=== PATIENT | female | born 1955 | race Caucasian/White ===

== ENCOUNTER 2020-12-26 10:37 | Outpatient (REF) | payer OTHER, SELFPAY ==
--- NOTE | ~2020-12-26 | XR_ITS ---
EXAMINATION: XR CHEST CLINICAL INFORMATION: COPD. COMPARISON: None TECHNIQUE: 2 views of the chest were obtained. FINDINGS: No significant abnormality is noted involving the heart, lungs, mediastinum, bony thorax or soft tissues. XR/XR chest 2V IMPRESSION: Unremarkable chest examination.
[2020-12-26 12:48] LABS: MANUAL DIFF FLAG NO
[2020-12-26 13:15] LABS: Basophils Absolute Auto 0.1 X10*3/uL (0.0-0.2); Basophils Percent Auto 1.1 % (0-2); Eosinophils Absolute Auto 0.1 X10*3/uL (0.0-0.4); Eosinophils Percent Auto 1.1 % (0-4); Hematocrit 38.6 % (37-47); Hemoglobin 12.9 g/dl (12.0-16.0); Imm Gran Abs Auto 0.01 X10*3/uL (0.00-0.03); Imm Gran Pct Auto 0.2 % (0.0-0.4); Lymphocytes Absolute Auto 2.3 X10*3/uL (1.2-4.9); Lymphocytes Percent Auto 42.9 % (20-40); Mean Corpuscular HGB Conc 33.4 g/dl (31.0-35.0); Mean Corpuscular Hemoglobin 29.5 pg (27.0-33.0); Mean Corpuscular Volume 88.1 fL (80-98); Mean Platelet Volume 9.4 fL (9.4-12.3); Monocytes Absolute Auto 0.3 X10*3/uL (0.1-1.2); Monocytes Percent Auto 5.5 % (2-11); Neutrophils Absolute Auto 2.7 X10*3/uL (2.0-8.3); Neutrophils Percent Auto 49.2 % (45-73); Platelet Count 260 X10*3/uL (160-400); Red Blood Count 4.38 X10*6/uL (4.20-5.50); Red Cell Distribution Width 12.4 % (11.0-16.0); White Blood Count 5.5 X10*3/uL (4.8-10.8)
[2020-12-26 14:55] LABS: Erythrocyte Sedimentation Rate 31 MM/HR (0-20)
[2020-12-27 15:02] LABS: IgA 487 mg/dL (70-320); IgG 993 mg/dL (600-1540); IgM 63 mg/dL (50-300)
== END 2020-12-26 10:38 | disposition home or self-care (01) ==
LOC: HO.LAB 10:37
PROVIDERS: PCP Nurse Practitioner Adult Health; Visit Provider Hospitalist
DX: J44.9 Chronic obstructive pulmonary disease, unspecified (principal); J30.9 Allergic rhinitis, unspecified; G47.33 Obstructive sleep apnea (adult) (pediatric); R01.1 Cardiac murmur, unspecified; Z79.899 Other long term (current) drug therapy
CPT/HCPCS: 36415; 71046; 82784; 82785; 85025; 85652; 86003; 99202

== ENCOUNTER → 2021-02-09 08:41 | Outpatient (BNVA) | payer OTHER, SELFPAY | PROVIDERS: PCP Nurse Practitioner Adult Health; Visit Provider Hospitalist | DX: G47.33 Obstructive sleep apnea (adult) (pediatric) (principal); J30.9 Allergic rhinitis, unspecified; J44.9 Chronic obstructive pulmonary disease, unspecified | CPT/HCPCS: 99212 ==

== ENCOUNTER → 2021-03-23 08:46 | Outpatient (BNVA) | payer OTHER, SELFPAY | PROVIDERS: PCP Nurse Practitioner Adult Health; Visit Provider Hospitalist | DX: R01.1 Cardiac murmur, unspecified (principal); J44.9 Chronic obstructive pulmonary disease, unspecified; G47.33 Obstructive sleep apnea (adult) (pediatric); J30.9 Allergic rhinitis, unspecified | CPT/HCPCS: 99212 ==

== ENCOUNTER 2021-04-11 10:35 | Outpatient (REF) | payer OTHER, SELFPAY | END 2021-04-11 10:36 | disposition home or self-care (01) | LOC: HO.MDS 10:35 | PROVIDERS: PCP Nurse Practitioner Adult Health; Visit Provider Hospitalist | DX: J45.50 Severe persistent asthma, uncomplicated (principal) | CPT/HCPCS: 96372; J2357 ==

== ENCOUNTER 2021-04-25 07:19 | Outpatient (REF) | payer OTHER, SELFPAY | END 2021-04-25 07:20 | disposition home or self-care (01) | LOC: HO.MDS 07:19 | PROVIDERS: PCP Nurse Practitioner Adult Health; Visit Provider Hospitalist | DX: J45.50 Severe persistent asthma, uncomplicated (principal) | CPT/HCPCS: 96372; J2357 ==

== ENCOUNTER 2021-05-09 07:16 | Outpatient (REF) | payer OTHER, SELFPAY | END 2021-05-09 07:17 | disposition home or self-care (01) | LOC: HO.MDS 07:16 | PROVIDERS: PCP Nurse Practitioner Adult Health; Visit Provider Hospitalist | DX: J45.50 Severe persistent asthma, uncomplicated (principal) | CPT/HCPCS: 96372; J2357 ==

== ENCOUNTER 2021-05-23 07:33 | Outpatient (REF) | payer OTHER, SELFPAY | END 2021-05-23 07:34 | disposition home or self-care (01) | LOC: HO.MDS 07:33 | PROVIDERS: PCP Nurse Practitioner Adult Health; Visit Provider Hospitalist | DX: J45.50 Severe persistent asthma, uncomplicated (principal) | CPT/HCPCS: 96372; J2357 ==

== ENCOUNTER 2021-06-06 07:12 | Outpatient (REF) | payer OTHER, SELFPAY | END 2021-06-06 07:13 | disposition home or self-care (01) | LOC: HO.MDS 07:12 | PROVIDERS: PCP Nurse Practitioner Adult Health; Visit Provider Hospitalist | DX: J45.50 Severe persistent asthma, uncomplicated (principal) | CPT/HCPCS: 96372; J2357 ==

== ENCOUNTER 2021-06-20 07:13 | Outpatient (REF) | payer OTHER, SELFPAY | END 2021-06-20 07:14 | disposition home or self-care (01) | LOC: HO.MDS 07:13 | PROVIDERS: PCP Nurse Practitioner Adult Health; Visit Provider Hospitalist | DX: J45.50 Severe persistent asthma, uncomplicated (principal) | CPT/HCPCS: 96372; J2357 ==

== ENCOUNTER 2021-07-04 07:20 | Outpatient (REF) | payer OTHER, SELFPAY | END 2021-07-04 07:21 | disposition home or self-care (01) | LOC: HO.MDS 07:20 | PROVIDERS: PCP Nurse Practitioner Adult Health; Visit Provider Hospitalist | DX: J45.50 Severe persistent asthma, uncomplicated (principal) | CPT/HCPCS: 96372; J2357 ==

== ENCOUNTER 2021-07-18 07:22 | Outpatient (REF) | payer OTHER, SELFPAY | END 2021-07-18 07:23 | disposition home or self-care (01) | LOC: HO.MDS 07:22 | PROVIDERS: PCP Nurse Practitioner Adult Health; Visit Provider Hospitalist | DX: J45.50 Severe persistent asthma, uncomplicated (principal) | CPT/HCPCS: 96372; J2357 ==

== ENCOUNTER → 2021-07-25 08:16 | Outpatient (BNVA) | payer OTHER, SELFPAY | PROVIDERS: PCP Nurse Practitioner Adult Health; Visit Provider Hospitalist | DX: J45.40 Moderate persistent asthma, uncomplicated (principal); J30.9 Allergic rhinitis, unspecified; R01.1 Cardiac murmur, unspecified; G47.33 Obstructive sleep apnea (adult) (pediatric) | CPT/HCPCS: 90686; 99212 ==

== ENCOUNTER 2021-08-01 07:30 | Outpatient (REF) | payer OTHER, SELFPAY | END 2021-08-01 07:31 | disposition home or self-care (01) | LOC: HO.MDS 07:30 | PROVIDERS: PCP Nurse Practitioner Adult Health; Visit Provider Hospitalist | DX: J45.50 Severe persistent asthma, uncomplicated (principal) | CPT/HCPCS: 96372; J2357 ==

== ENCOUNTER → 2021-08-14 10:57 | Outpatient (REF) | payer OTHER, SELFPAY | LOC: HO.SL 10:57 | PROVIDERS: PCP Nurse Practitioner Adult Health; Visit Provider Hospitalist | DX: G47.33 Obstructive sleep apnea (adult) (pediatric) (principal) | CPT/HCPCS: 95806 ==

== ENCOUNTER 2021-08-15 07:13 | Outpatient (REF) | payer OTHER, SELFPAY | END 2021-08-15 07:14 | disposition home or self-care (01) | LOC: HO.MDS 07:13 | PROVIDERS: PCP Nurse Practitioner Adult Health; Visit Provider Hospitalist | DX: J45.50 Severe persistent asthma, uncomplicated (principal) | CPT/HCPCS: 96372; J2357 ==

== ENCOUNTER 2021-08-29 07:17 | Outpatient (REF) | payer OTHER, SELFPAY | END 2021-08-29 07:18 | disposition home or self-care (01) | LOC: HO.MDS 07:17 | PROVIDERS: PCP Nurse Practitioner Adult Health; Visit Provider Hospitalist | DX: J45.50 Severe persistent asthma, uncomplicated (principal) | CPT/HCPCS: 96372; J2357 ==

== ENCOUNTER → 2021-09-06 10:20 | Outpatient (BNVA) | payer OTHER, SELFPAY | PROVIDERS: PCP Nurse Practitioner Adult Health; Visit Provider Hospitalist | DX: J45.40 Moderate persistent asthma, uncomplicated (principal); J30.9 Allergic rhinitis, unspecified; G47.33 Obstructive sleep apnea (adult) (pediatric); R01.1 Cardiac murmur, unspecified | CPT/HCPCS: 99212 ==

== ENCOUNTER 2021-09-12 07:15 | Outpatient (REF) | payer OTHER, SELFPAY | END 2021-09-12 07:16 | disposition home or self-care (01) | LOC: HO.MDS 07:15 | PROVIDERS: PCP Nurse Practitioner Adult Health; Visit Provider Hospitalist | DX: J45.50 Severe persistent asthma, uncomplicated (principal) | CPT/HCPCS: 96372; J2357 ==

== ENCOUNTER 2021-09-26 07:06 | Outpatient (REF) | payer OTHER, SELFPAY | END 2021-09-26 07:07 | disposition home or self-care (01) | LOC: HO.MDS 07:06 | PROVIDERS: PCP Nurse Practitioner Adult Health; Visit Provider Hospitalist | DX: J45.50 Severe persistent asthma, uncomplicated (principal) | CPT/HCPCS: 96372; J2357 ==

== ENCOUNTER 2021-10-10 07:21 | Outpatient (REF) | payer OTHER, SELFPAY | END 2021-10-10 07:22 | disposition home or self-care (01) | LOC: HO.MDS 07:21 | PROVIDERS: PCP Nurse Practitioner Adult Health; Visit Provider Hospitalist | DX: J45.50 Severe persistent asthma, uncomplicated (principal) | CPT/HCPCS: 96372; J2357 ==

== ENCOUNTER 2021-10-24 07:13 | Outpatient (REF) | payer OTHER, SELFPAY | END 2021-10-24 07:14 | disposition home or self-care (01) | LOC: HO.MDS 07:13 | PROVIDERS: PCP Nurse Practitioner Adult Health; Visit Provider Hospitalist | DX: J45.50 Severe persistent asthma, uncomplicated (principal) | CPT/HCPCS: 96372; J2357 ==

== ENCOUNTER → 2021-10-26 08:31 | Outpatient (BNVA) | payer OTHER, SELFPAY | PROVIDERS: PCP Nurse Practitioner Adult Health; Visit Provider Hospitalist | DX: J45.40 Moderate persistent asthma, uncomplicated (principal); R01.1 Cardiac murmur, unspecified; J30.9 Allergic rhinitis, unspecified; G47.33 Obstructive sleep apnea (adult) (pediatric); Z79.899 Other long term (current) drug therapy | CPT/HCPCS: 99212 ==

== ENCOUNTER 2021-11-07 07:12 | Outpatient (REF) | payer OTHER, SELFPAY | END 2021-11-07 07:13 | disposition home or self-care (01) | LOC: HO.MDS 07:12 | PROVIDERS: PCP Nurse Practitioner Adult Health; Visit Provider Hospitalist | DX: J45.50 Severe persistent asthma, uncomplicated (principal) | CPT/HCPCS: 96372; J2357 ==

== ENCOUNTER 2021-11-21 07:10 | Outpatient (REF) | payer OTHER, SELFPAY | END 2021-11-21 07:11 | disposition home or self-care (01) | LOC: HO.MDS 07:10 | PROVIDERS: PCP Nurse Practitioner Adult Health; Visit Provider Hospitalist | DX: J45.50 Severe persistent asthma, uncomplicated (principal) | CPT/HCPCS: 96372; J2357 ==

== ENCOUNTER 2021-12-07 12:42 | Outpatient (REF) | payer OTHER, SELFPAY | END 2021-12-07 12:43 | disposition home or self-care (01) | LOC: HO.MDS 12:42 | PROVIDERS: PCP Nurse Practitioner Adult Health; Visit Provider Hospitalist | DX: J45.50 Severe persistent asthma, uncomplicated (principal) | CPT/HCPCS: 96372; J2357 ==

== ENCOUNTER 2021-12-26 07:08 | Outpatient (REF) | payer OTHER, SELFPAY | END 2021-12-26 07:09 | disposition home or self-care (01) | LOC: HO.MDS 07:08 | PROVIDERS: PCP Nurse Practitioner Adult Health; Visit Provider Hospitalist | DX: J45.50 Severe persistent asthma, uncomplicated (principal) | CPT/HCPCS: 96372; J2357 ==

== ENCOUNTER 2022-01-09 07:11 | Outpatient (REF) | payer OTHER, SELFPAY | END 2022-01-09 07:12 | disposition home or self-care (01) | LOC: HO.MDS 07:11 | PROVIDERS: PCP Nurse Practitioner Adult Health; Visit Provider Hospitalist | DX: J45.50 Severe persistent asthma, uncomplicated (principal) | CPT/HCPCS: 96372; J2357 ==

== ENCOUNTER 2022-01-23 07:08 | Outpatient (REF) | payer OTHER, SELFPAY | END 2022-01-23 07:09 | disposition home or self-care (01) | LOC: HO.MDS 07:08 | PROVIDERS: PCP Nurse Practitioner Adult Health; Visit Provider Hospitalist | DX: J45.50 Severe persistent asthma, uncomplicated (principal) | CPT/HCPCS: 96372; J2357 ==

== ENCOUNTER 2022-02-06 07:16 | Outpatient (REF) | payer OTHER, SELFPAY | END 2022-02-06 07:17 | disposition home or self-care (01) | LOC: HO.MDS 07:16 | PROVIDERS: PCP Nurse Practitioner Adult Health; Visit Provider Hospitalist | DX: J45.50 Severe persistent asthma, uncomplicated (principal) | CPT/HCPCS: 96372; J2357 ==

== ENCOUNTER 2022-02-20 07:06 | Outpatient (REF) | payer OTHER, SELFPAY | END 2022-02-20 07:07 | disposition home or self-care (01) | LOC: HO.MDS 07:06 | PROVIDERS: PCP Nurse Practitioner Adult Health; Visit Provider Hospitalist | DX: J45.50 Severe persistent asthma, uncomplicated (principal) | CPT/HCPCS: 96372; J2357 ==

== ENCOUNTER 2022-03-06 07:08 | Outpatient (REF) | payer OTHER, SELFPAY | END 2022-03-06 07:09 | disposition home or self-care (01) | LOC: HO.MDS 07:08 | PROVIDERS: PCP Nurse Practitioner Adult Health; Visit Provider Hospitalist | DX: J45.50 Severe persistent asthma, uncomplicated (principal) | CPT/HCPCS: 96372; J2357 ==

== ENCOUNTER 2022-03-20 07:09 | Outpatient (REF) | payer OTHER, SELFPAY | END 2022-03-20 07:10 | disposition home or self-care (01) | LOC: HO.MDS 07:09 | PROVIDERS: PCP Nurse Practitioner Adult Health; Visit Provider Hospitalist | DX: J45.50 Severe persistent asthma, uncomplicated (principal) | CPT/HCPCS: 96372; J2357 ==

== ENCOUNTER → 2022-03-21 08:40 | Outpatient (BNVA) | payer OTHER, SELFPAY | PROVIDERS: PCP Nurse Practitioner Adult Health; Visit Provider Hospitalist | DX: J45.40 Moderate persistent asthma, uncomplicated (principal); G47.33 Obstructive sleep apnea (adult) (pediatric); R01.1 Cardiac murmur, unspecified; J30.9 Allergic rhinitis, unspecified | CPT/HCPCS: 99212 ==

== ENCOUNTER 2022-04-03 07:05 | Outpatient (REF) | payer OTHER, SELFPAY | END 2022-04-03 07:06 | disposition home or self-care (01) | LOC: HO.MDS 07:05 | PROVIDERS: PCP Nurse Practitioner Adult Health; Visit Provider Hospitalist | DX: J45.50 Severe persistent asthma, uncomplicated (principal) | CPT/HCPCS: 96372; J2357 ==

== ENCOUNTER 2022-04-17 07:05 | Outpatient (REF) | payer OTHER, SELFPAY | END 2022-04-17 07:06 | disposition home or self-care (01) | LOC: HO.MDS 07:05 | PROVIDERS: Visit Provider Hospitalist | DX: J45.50 Severe persistent asthma, uncomplicated (principal) | CPT/HCPCS: 96372; J2357 ==

== ENCOUNTER 2022-05-01 07:09 | Outpatient (REF) | payer OTHER, SELFPAY | END 2022-05-01 07:10 | disposition home or self-care (01) | LOC: HO.MDS 07:09 | PROVIDERS: Visit Provider Hospitalist | DX: J45.50 Severe persistent asthma, uncomplicated (principal) | CPT/HCPCS: 96372; J2357 ==

== ENCOUNTER 2022-06-13 07:07 | Outpatient (REF) | payer OTHER, SELFPAY | END 2022-06-13 07:08 | disposition home or self-care (01) | LOC: HO.MDS 07:07 | PROVIDERS: Visit Provider Hospitalist | DX: J45.50 Severe persistent asthma, uncomplicated (principal) | CPT/HCPCS: 96372; J2357 ==

== ENCOUNTER 2022-06-27 07:06 | Outpatient (REF) | payer OTHER, SELFPAY | END 2022-06-27 07:07 | disposition home or self-care (01) | LOC: HO.MDS 07:06 | PROVIDERS: Visit Provider Hospitalist | DX: J45.50 Severe persistent asthma, uncomplicated (principal) | CPT/HCPCS: 96372; J2357 ==

== ENCOUNTER 2022-07-11 07:36 | Outpatient (REF) | payer OTHER, SELFPAY | END 2022-07-11 07:37 | disposition home or self-care (01) | LOC: HO.MDS 07:36 | PROVIDERS: Visit Provider Hospitalist | DX: J45.50 Severe persistent asthma, uncomplicated (principal) | CPT/HCPCS: 96372; J2357 ==

== ENCOUNTER 2022-07-25 07:13 | Outpatient (REF) | payer OTHER, SELFPAY | END 2022-07-25 07:14 | disposition home or self-care (01) | LOC: HO.MDS 07:13 | PROVIDERS: Visit Provider Hospitalist | DX: J45.50 Severe persistent asthma, uncomplicated (principal) | CPT/HCPCS: 96372; J2357 ==

== ENCOUNTER 2022-08-08 07:07 | Outpatient (REF) | payer OTHER, SELFPAY | END 2022-08-08 07:08 | disposition home or self-care (01) | LOC: HO.MDS 07:07 | PROVIDERS: Visit Provider Hospitalist | DX: J45.50 Severe persistent asthma, uncomplicated (principal) | CPT/HCPCS: 96372; J2357 ==

== ENCOUNTER 2022-08-20 07:06 | Outpatient (REF) | payer OTHER, SELFPAY | END 2022-08-20 07:07 | disposition home or self-care (01) | LOC: HO.MDS 07:06 | PROVIDERS: Visit Provider Hospitalist | DX: J45.50 Severe persistent asthma, uncomplicated (principal) | CPT/HCPCS: 96372 ==

== ENCOUNTER 2022-09-05 07:04 | Outpatient (REF) | payer OTHER, SELFPAY | END 2022-09-05 07:05 | disposition home or self-care (01) | LOC: HO.MDS 07:04 | PROVIDERS: Visit Provider Hospitalist | DX: J45.50 Severe persistent asthma, uncomplicated (principal) | CPT/HCPCS: 96372 ==

== ENCOUNTER → 2022-09-16 08:34 | Outpatient (BNVA) | payer OTHER, SELFPAY | PROVIDERS: PCP Nurse Practitioner Adult Health; Visit Provider Hospitalist | DX: Z23 Encounter for immunization (principal); J45.40 Moderate persistent asthma, uncomplicated; R01.1 Cardiac murmur, unspecified; G47.33 Obstructive sleep apnea (adult) (pediatric); J30.9 Allergic rhinitis, unspecified | CPT/HCPCS: 90471; 90686; 99212 ==

== ENCOUNTER 2022-09-19 07:01 | Outpatient (REF) | payer OTHER, SELFPAY | END 2022-09-19 07:02 | disposition home or self-care (01) | LOC: HO.MDS 07:01 | PROVIDERS: Visit Provider Hospitalist | DX: J45.50 Severe persistent asthma, uncomplicated (principal) | CPT/HCPCS: 96372 ==

== ENCOUNTER 2022-10-03 07:09 | Outpatient (REF) | payer OTHER, SELFPAY | END 2022-10-03 07:10 | disposition home or self-care (01) | LOC: HO.MDS 07:09 | PROVIDERS: Visit Provider Hospitalist | DX: J45.50 Severe persistent asthma, uncomplicated (principal) | CPT/HCPCS: 96372; J2357 ==

== ENCOUNTER 2022-10-17 06:46 | Outpatient (REF) | payer OTHER, SELFPAY | END 2022-10-17 06:47 | disposition home or self-care (01) | LOC: HO.MDS 06:46 | PROVIDERS: Visit Provider Hospitalist | DX: J45.50 Severe persistent asthma, uncomplicated (principal) | CPT/HCPCS: 96372; J2357 ==

== ENCOUNTER 2022-10-31 06:43 | Outpatient (REF) | payer OTHER, SELFPAY | END 2022-10-31 06:44 | disposition home or self-care (01) | LOC: HO.MDS 06:43 | PROVIDERS: Visit Provider Hospitalist | DX: J45.50 Severe persistent asthma, uncomplicated (principal) | CPT/HCPCS: 96372; J2357 ==

== ENCOUNTER 2022-11-14 06:56 | Outpatient (REF) | payer OTHER, SELFPAY | END 2022-11-14 06:57 | disposition home or self-care (01) | LOC: HO.MDS 06:56 | PROVIDERS: Visit Provider Hospitalist | DX: J45.50 Severe persistent asthma, uncomplicated (principal) | CPT/HCPCS: 96372; J2357 ==

== ENCOUNTER 2022-11-28 06:54 | Outpatient (REF) | payer OTHER, SELFPAY | END 2022-11-28 06:55 | disposition home or self-care (01) | LOC: HO.MDS 06:54 | PROVIDERS: Visit Provider Hospitalist | DX: J45.50 Severe persistent asthma, uncomplicated (principal) | CPT/HCPCS: 96372 ==

== ENCOUNTER 2022-12-12 06:58 | Outpatient (REF) | payer OTHER, SELFPAY | END 2022-12-12 06:59 | disposition home or self-care (01) | LOC: HO.MDS 06:58 | PROVIDERS: Visit Provider Hospitalist | DX: J45.50 Severe persistent asthma, uncomplicated (principal) | CPT/HCPCS: 96372 ==

== ENCOUNTER 2022-12-26 06:56 | Outpatient (REF) | payer OTHER, SELFPAY | END 2022-12-26 06:57 | disposition home or self-care (01) | LOC: HO.MDS 06:56 | PROVIDERS: Visit Provider Hospitalist | DX: J45.50 Severe persistent asthma, uncomplicated (principal) | CPT/HCPCS: 96372 ==

== ENCOUNTER 2023-01-09 10:07 | Outpatient (REF) | payer OTHER, SELFPAY | END 2023-01-09 10:08 | disposition home or self-care (01) | LOC: HO.MDS 10:07 | PROVIDERS: Visit Provider Hospitalist | DX: J45.50 Severe persistent asthma, uncomplicated (principal) | CPT/HCPCS: 96372 ==

== ENCOUNTER 2023-01-23 08:51 | Outpatient (REF) | payer OTHER, SELFPAY | END 2023-01-23 08:52 | disposition home or self-care (01) | LOC: HO.MDS 08:51 | PROVIDERS: Visit Provider Hospitalist | DX: J45.50 Severe persistent asthma, uncomplicated (principal) | CPT/HCPCS: 96372 ==

== ENCOUNTER 2023-02-07 08:55 | Outpatient (REF) | payer OTHER, SELFPAY | END 2023-02-07 08:56 | disposition home or self-care (01) | LOC: HO.MDS 08:55 | PROVIDERS: Visit Provider Hospitalist | DX: J45.50 Severe persistent asthma, uncomplicated (principal) | CPT/HCPCS: 96372 ==

== ENCOUNTER 2023-03-07 09:14 | Outpatient (REF) | payer OTHER, SELFPAY | END 2023-03-07 09:15 | disposition home or self-care (01) | LOC: HO.MDS 09:14 | PROVIDERS: Visit Provider Hospitalist | DX: J45.50 Severe persistent asthma, uncomplicated (principal) | CPT/HCPCS: 96372 ==

== ENCOUNTER 2023-03-21 08:40 | Outpatient (REF) | payer OTHER, SELFPAY | END 2023-03-21 08:41 | disposition home or self-care (01) | LOC: HO.MDS 08:40 | PROVIDERS: Visit Provider Hospitalist | DX: J45.50 Severe persistent asthma, uncomplicated (principal) | CPT/HCPCS: 96372 ==

== ENCOUNTER 2023-03-31 07:29 | Outpatient (REF) | payer OTHER, SELFPAY | END 2023-03-31 07:30 | disposition home or self-care (01) | LOC: HO.MDS 07:29 | PROVIDERS: Visit Provider Hospitalist | DX: J45.50 Severe persistent asthma, uncomplicated (principal) ==

== ENCOUNTER 2023-04-02 07:42 | Outpatient (REF) | payer OTHER, SELFPAY | END 2023-04-02 07:43 | disposition home or self-care (01) | LOC: HO.MDS 07:42 | PROVIDERS: PCP Nurse Practitioner Adult Health; Visit Provider Hospitalist | DX: J45.50 Severe persistent asthma, uncomplicated (principal) | CPT/HCPCS: 96372; J2357 ==

== ENCOUNTER 2023-04-16 07:48 | Outpatient (REF) | payer OTHER, SELFPAY | END 2023-04-16 07:49 | disposition home or self-care (01) | LOC: HO.MDS 07:48 | PROVIDERS: Visit Provider Hospitalist | DX: J45.50 Severe persistent asthma, uncomplicated (principal) | CPT/HCPCS: 96372; J2357 ==

== ENCOUNTER 2023-04-30 07:29 | Outpatient (REF) | payer OTHER, SELFPAY | END 2023-04-30 07:30 | disposition home or self-care (01) | LOC: HO.MDS 07:29 | PROVIDERS: Visit Provider Hospitalist | DX: J45.50 Severe persistent asthma, uncomplicated (principal) | CPT/HCPCS: 96372; J2357 ==

== ENCOUNTER 2023-05-14 07:24 | Outpatient (REF) | payer OTHER, SELFPAY | END 2023-05-14 07:25 | disposition home or self-care (01) | LOC: HO.MDS 07:24 | PROVIDERS: Visit Provider Hospitalist | DX: J45.50 Severe persistent asthma, uncomplicated (principal) | CPT/HCPCS: 96372; J2357 ==

== ENCOUNTER 2023-05-28 07:06 | Outpatient (REF) | payer OTHER, SELFPAY | END 2023-05-28 07:07 | disposition home or self-care (01) | LOC: HO.MDS 07:06 | PROVIDERS: Visit Provider Hospitalist | DX: J45.50 Severe persistent asthma, uncomplicated (principal) | CPT/HCPCS: 96372 ==

== ENCOUNTER 2023-06-11 06:37 | Outpatient (REF) | payer OTHER, SELFPAY | END 2023-06-11 06:38 | disposition home or self-care (01) | LOC: HO.MDS 06:37 | PROVIDERS: Visit Provider Hospitalist | DX: J45.50 Severe persistent asthma, uncomplicated (principal) | CPT/HCPCS: 96372 ==

== ENCOUNTER 2023-07-16 07:38 | Outpatient (REF) | payer OTHER, SELFPAY | END 2023-07-16 07:39 | disposition home or self-care (01) | LOC: HO.MDS 07:38 | PROVIDERS: Visit Provider Hospitalist | DX: J45.50 Severe persistent asthma, uncomplicated (principal) | CPT/HCPCS: 96372 ==

== ENCOUNTER 2023-07-29 08:43 | Outpatient (AMB) | payer OTHER, SELFPAY ==
[2023-07-29 08:54] VITALS: BP 120/70; PULSE 66; O2SAT 97; BMI 31.5
--- NOTE | 2023-07-29 08:54 | MHC.OFFVIS ---
Intake Vital Signs 07/29/23 08:54 Height 4 ft 10 in Weight 150 lb 12.739 oz BMI 31.5 BP 120/70 Blood Pressure Location Lt brachial Position Sitting Pulse 66 Pulse Source Pulse Oximeter Pulse Oximetry (%) 97 Oxygen Delivery Method Room Air Intake Visit Reasons: Asthma Inspector Quality Assurance Required: No Allergies acetaminophen [From Percocet] Allergy (Severe, Verified 07/29/23 08:57) Rash and Hives benzocaine Allergy (Severe, Verified 07/29/23 08:57) Rash and Hives oxycodone [From Percocet] Allergy (Severe, Verified 07/29/23 08:57) Rash and Hives Penicillins Allergy (Severe, Verified 07/29/23 08:57) Rash and Hves HPI HPI Comments History of Present Illness Details The patient is a 68-year-old woman with lifelong asthma here for a pulmonary evaluation. The patient was diagnosed with asthma when she was an infant. She has been followed closely by Allergy immunology. She has been on allergy shots for many years. In addition to that she has tried multiple inhalers. However, the beta agonist inhalers resulting significant tremulousness and palpitations and she cannot tolerate them. Therefore she has a Xopenex short-acting bronchodilator she also uses inhaled cortical steroid. She continues to have wheezing on a regular basis. She developed chest tightness which is mild and to moderate severity. It does limit her activity. She was offered different inhaler but again she was concerned with the long-acting beta agonist resulting worsening tremors and cardiac side effects. In in addition to the allergy shots she had been prescribed Xolair. However, financially was very expensive for she was not able to continue the therapy. In addition to that the patient has underlying obstructive sleep apnea. She was diagnosed many years ago. Initially she was using CPAP with was very difficult for her to get used to it. Ultimately the machine was lost she no longer used it. He has been many years since that. She does have a fragmented sleep and she does wake up tired with some daytime drowsiness. Her [place] score is indeed elevated in over 24. The patient should consider repeating the sleep study at some point. In regards of imaging studies she had an x-ray at [facility] back in 2011 which him per report stated was no acute disease. The cannot look at it myself because the timeframe. 03/21/2022 the patient is here for a pulmonary follow-up visit. Overall the patient has been doing well. She did finally get her CPAP. The CPAP therapy has been affecting beneficial. She has been having issues with the heat and humidity. Therefore we did change it to manual and decreased temperature. She may do better with climate tubing. I will request an from the [facility]. Right now the CPAP therapy appears to be affecting beneficial. I am hopeful with the changes the humidity she will tolerated out better. Her respiratory status is also stable. She continues on Xolair. Although, she continues to have allergy symptoms in between specially during the springtime. We did briefly talk about other alternatives such as Dupixent in case she continues to have breakthrough symptoms. She will talk to her program supervisor about that. She continues use her respiratory therapy with good effect. Will continue with current medications. 09/16/2022 the patient is here for pulmonary follow-up visit per the patient continues to do well. She continues to use her respiratory therapy. She has not required her rescue inhaler more than twice a week. The patient has been on Xolair every 2 weeks which has been very affecting beneficial. Her IgE was significantly elevated the last time about 900. The patient should continue with the every 2 weeks injection. In the meantime the patient also should carry an EpiPen. Her sense so therefore I will send her want to the pharmacy. From a CPAP standpoint. She has been using the therapy and has been affecting beneficial. She does try to use more than 4 hours a night. Her AHI is below 1. Although I will adjust her pressure is slightly high with a maximum pressure of 14 from 12 the to allow even more effective use and benefit. The the the the if the patient does not tolerate the higher pressure she can just call and I can tweak the machine again. 07/29/2023 the patient is here for pulmonary follow-up visit. The patient overall is doing well. She recently had 2 compression fractures and did undergo kyphoplasty with good results. She will talk to her primary care doctor about getting a bone density test. The patient has been off inhaled steroids which is reassuring therefore she is not taking any medications that can potentially worsen her bone density. However, the patient may have some degree of osteoporosis osteopenia based on the significant fractures. From an asthma standpoint she continues to do well on the Xolair. She does get the Xolair every 2 weeks and she has a rescue inhaler that she uses usually less than 2 times a week which is reassuring. In addition to that she continues we using her CPAP. The CPAP therapy continues to be affecting beneficial and she does try to use it every night sometimes she falls asleep without it. Sometimes she does use it about 3 hours and 50 minutes and neck did encourage her to continue to use at least 4 hours that she can qualify for the 70% time use. But the therapies very affecting beneficial for her. She will continue it at this time. [facility] Medical History (Updated 07/29/23 @ 18:34 by Kaden Cedillo MD) Compression fracture of body of thoracic vertebra Asthma Murmur, cardiac MARIAELENA (obstructive sleep apnea) Chronic allergic rhinitis Asthma-COPD overlap syndrome Social History (Updated 07/25/21 @ 08:36 by Graciela West [facility]) Patient Tobacco Use Status: Never used Tobacco Review of Systems Const Denies daytime sleepiness, Denies difficulty sleeping, Denies night sweats and Denies snoring ENT Denies change in voice, Denies lip swelling, Denies mouth pain, Reports nasal congestion, Reports nasal discharge and Denies tongue swelling Card Denies chest pain Resp Denies chest congestion, Reports cough, Denies snoring and Denies wheezing GI Denies abdominal pain Musc Reports myalgias and Reports arthralgias Neuro Denies Neuro-related abnormal movements Psych Denies no additional complaints Vin/Lymph Denies easy bleeding and Denies lymphadenopathy Aller/Immun Denies lip swelling, Denies tongue swelling and Denies wheezing Physical Exam Vital Signs: Last Vital Signs Pulse 66 07/29/23 08:54 BP 120/70 07/29/23 08:54 Pulse Ox 97 07/29/23 08:54 Oxygen Delivery Method Room Air 07/29/23 08:54 BMI result Body Mass Index 31.5 Const General: alert Neck Neck: Yes normal visual inspection, Yes full ROM and Yes no lymphadenopathy Chest Chest palpation & inspection: normal inspection of the chest Resp Effort & Inspection: normal respiratory effort Auscultation: clear to auscultation bilaterally and no wheezes Cardio Rate: regular rate Rhythm: regular rhythm Heart sounds: S1 normal heart sound present and S2 normal heart sound present GI Palpation (GI): Soft to palpation and nontender Auscultation: normal bowel sounds Skin General skin exam: rashes and/or lesions noted Assessment & Plan Assessment & Plan (1) Asthma: Code(s): J45.909 - Unspecified asthma, uncomplicated Qualifiers: Asthma complication type: uncomplicated Asthma persistence: persistent Asthma severity: moderate Qualified Code(s): J45.40 - Moderate persistent asthma, uncomplicated (2) Murmur, cardiac: Code(s): R01.1 - Cardiac murmur, unspecified (3) MARIAELENA (obstructive sleep apnea): Code(s): G47.33 - Obstructive sleep apnea (adult) (pediatric) (4) Chronic allergic rhinitis: Code(s): J30.9 - Allergic rhinitis, unspecified (5) Compression fracture of body of thoracic vertebra: Code(s): S22.000A - Wedge compression fracture of unspecified thoracic vertebra, initial encounter for closed fracture Plan [place] as needed Continue Xolair continue APAP, adjusted humidity Needs a bone density test, should d/w PCP follow-up in 6-8 months Medications: New levalbuterol tartrate 45 mcg/actuation 2 puffs inhalation Q4-6H PRN 15 grams 11RF shortness of breath or wheezing Coding Level of Care Code Est Pt Level 4 (30697) Diagnoses Moderate persistent asthma without complication J45.40 Asthma complication type: uncomplicated Asthma persistence: persistent Asthma severity: moderate Murmur, cardiac R01.1 MARIAELENA (obstructive sleep apnea) G47.33 Chronic allergic rhinitis J30.9 Compression fracture of body of thoracic vertebra S22.000A Time Spent (min) 16
== END 2023-07-29 09:26 | disposition home or self-care (01) ==
PROVIDERS: PCP Nurse Practitioner Adult Health; Visit Provider Hospitalist
DX: J45.40 Moderate persistent asthma, uncomplicated (principal); R01.1 Cardiac murmur, unspecified; G47.33 Obstructive sleep apnea (adult) (pediatric); J30.9 Allergic rhinitis, unspecified; S22.000A Wedge compression fracture of unspecified thoracic vertebra, initial encounter for closed fracture
CPT/HCPCS: 99214

== ENCOUNTER → 2023-07-29 08:43 | Outpatient (BNVA) | payer OTHER, SELFPAY | PROVIDERS: PCP Nurse Practitioner Adult Health; Visit Provider Hospitalist | DX: J45.40 Moderate persistent asthma, uncomplicated (principal); J30.9 Allergic rhinitis, unspecified; R01.1 Cardiac murmur, unspecified; G47.33 Obstructive sleep apnea (adult) (pediatric); S22.000D Wedge compression fracture of unspecified thoracic vertebra, subsequent encounter for fracture with routine healing | CPT/HCPCS: 99212 ==

== ENCOUNTER 2023-07-30 07:45 | Outpatient (REF) | payer OTHER, SELFPAY | END 2023-07-30 07:46 | disposition home or self-care (01) | LOC: HO.MDS 07:45 | PROVIDERS: Visit Provider Hospitalist | DX: J45.50 Severe persistent asthma, uncomplicated (principal) | CPT/HCPCS: 96372 ==

== ENCOUNTER 2023-08-13 08:47 | Outpatient (REF) | payer OTHER, SELFPAY | END 2023-08-13 08:48 | disposition home or self-care (01) | LOC: HO.MDS 08:47 | PROVIDERS: Visit Provider Hospitalist | DX: J45.50 Severe persistent asthma, uncomplicated (principal) | CPT/HCPCS: 96372 ==

== ENCOUNTER 2023-08-27 08:28 | Outpatient (REF) | payer OTHER, SELFPAY | END 2023-08-27 08:29 | disposition home or self-care (01) | LOC: HO.MDS 08:28 | PROVIDERS: Visit Provider Hospitalist | DX: J45.50 Severe persistent asthma, uncomplicated (principal) | CPT/HCPCS: 96372 ==

== ENCOUNTER 2023-09-10 08:57 | Outpatient (REF) | payer OTHER, SELFPAY | END 2023-09-10 08:58 | disposition home or self-care (01) | LOC: HO.MDS 08:57 | PROVIDERS: Visit Provider Hospitalist | DX: J45.50 Severe persistent asthma, uncomplicated (principal) | CPT/HCPCS: 96372 ==

== ENCOUNTER 2023-09-24 08:44 | Outpatient (REF) | payer OTHER, SELFPAY | END 2023-09-24 08:45 | disposition home or self-care (01) | LOC: HO.MDS 08:44 | PROVIDERS: Visit Provider Hospitalist | DX: J45.50 Severe persistent asthma, uncomplicated (principal) | CPT/HCPCS: 96372 ==

== ENCOUNTER 2023-10-17 09:06 | Outpatient (REF) | payer OTHER, SELFPAY | END 2023-10-17 09:07 | disposition home or self-care (01) | LOC: HO.MDS 09:06 | PROVIDERS: Visit Provider Hospitalist | DX: J45.50 Severe persistent asthma, uncomplicated (principal) | CPT/HCPCS: 96372 ==

== ENCOUNTER 2023-11-05 09:04 | Outpatient (REF) | payer OTHER, SELFPAY | END 2023-11-05 09:05 | disposition home or self-care (01) | LOC: HO.MDS 09:04 | PROVIDERS: Visit Provider Hospitalist | DX: J45.50 Severe persistent asthma, uncomplicated (principal) | CPT/HCPCS: 96372 ==

== ENCOUNTER 2023-11-19 09:18 | Outpatient (REF) | payer OTHER, SELFPAY | END 2023-11-19 09:19 | disposition home or self-care (01) | LOC: HO.MDS 09:18 | PROVIDERS: Visit Provider Hospitalist | DX: J45.50 Severe persistent asthma, uncomplicated (principal) | CPT/HCPCS: 96372 ==

== ENCOUNTER 2023-12-03 09:06 | Outpatient (REF) | payer OTHER, SELFPAY ==
[2023-12-03 09:09] VITALS: BP 168/80; PULSE 70; RESP 18; TEMP 36.3; O2SAT 97
[2023-12-03] MEDS: Omalizumab 300 MG, Omalizumab 75 MG 375 MG SUBCUT (09:11)
--- NOTE | 2023-12-03 09:18 | HO.INF ---
PATIENT UNABLE TO WAIT ALLOTTED TIME EDUCATED ON S/SX OF ALLERGIC REACTION
== END 2023-12-03 09:07 | disposition home or self-care (01) ==
LOC: HO.MDS 09:06
PROVIDERS: Visit Provider Hospitalist
DX: J45.50 Severe persistent asthma, uncomplicated (principal)
CPT/HCPCS: 96372

== ENCOUNTER 2023-12-24 08:38 | Outpatient (REF) | payer OTHER, SELFPAY ==
[2023-12-24 08:41] VITALS: BP 151/81; PULSE 79; RESP 20; TEMP 36.6; O2SAT 97
[2023-12-24] MEDS: Omalizumab 300 MG, Omalizumab 75 MG 375 MG SUBCUT (08:45)
== END 2023-12-24 08:39 | disposition home or self-care (01) ==
LOC: HO.MDS 08:38
PROVIDERS: Visit Provider Hospitalist
DX: J45.50 Severe persistent asthma, uncomplicated (principal)
CPT/HCPCS: 96372

== ENCOUNTER 2024-07-30 13:51 | Outpatient (AMB) | payer OTHER, SELFPAY ==
[2024-07-30 14:14] VITALS: BP 122/78; PULSE 72; O2SAT 97; BMI 32.3
--- NOTE | 2024-07-30 14:14 | A.OFFVIS_ITS ---
Vital Signs 07/30/24 14:14 Height 4 ft 10 in Weight 154 lb 5.177 oz BMI 32.3 BP 122/78 Blood Pressure Location Lt brachial Position Sitting Pulse 72 Pulse Source Pulse Oximeter Pulse Oximetry (%) 97 Oxygen Delivery Method Room Air Intake Visit Reasons: asthma Pediatric Radiologist Required: No Allergies acetaminophen [From Percocet] Allergy (Severe, Verified 07/30/24 14:18) Rash and Hives benzocaine Allergy (Severe, Verified 07/30/24 14:18) Rash and Hives oxycodone [From Percocet] Allergy (Severe, Verified 07/30/24 14:18) Rash and Hives Penicillins Allergy (Severe, Verified 07/30/24 14:18) Rash and Hves HPI Comments Details: The patient is a 69-year-old woman with lifelong asthma here for a pulmonary evaluation. The patient was diagnosed with asthma when she was an infant. She has been followed closely by Allergy immunology. She has been on allergy shots for many years. In addition to that she has tried multiple inhalers. However, the beta agonist inhalers resulting significant tremulousness and palpitations and she cannot tolerate them. Therefore she has a Xopenex short-acting br onchodilator she also uses inhaled cortical steroid. She continues to have wheezing on a regular basis. She developed chest tightness which is mild and to moderate severity. It does limit her activity. She was offered different inhaler but again she was concerned with the long-acting beta agonist resulting worsening tremors and cardiac side effects. In in addition to the allergy shots she had been prescribed Xolair. However, financially was very expensive for she was not able to continue the therapy. In addition to that the patient has underlying obstructive sleep apnea. She was diagnosed many years ago. Initially she was using CPAP with was very difficult for her to get used to it. Ultimately the machine was lost she no longer used it. He has been many years since that. She does have a fragmented sleep and she does wake up tired with some daytime drowsiness. Her [place] score is indeed elevated in over 24. The patient should consider repeating the sleep study at some point. In regards of imaging studies she had an x-ray at [facility] back in 2011 which him per report stated was no acute disease. The cannot look at it myself because the timeframe. 03/21/2022 the patient is here for a pulmonary follow-up visit. Overall the patient has been doing well. She did finally get her CPAP. The CPAP therapy has been affecting beneficial. She has been having issues with the heat and humidity. Therefore we did change it to manual and decreased temperature. She may do better with climate tubing. I will request an from the [employer]. Right now the CPAP therapy appears to be affecting beneficial. I am hopeful with the changes the humidity she will tolerated out better. Her respiratory status is also stable. She continues on Xolair. Although, she continues to have allergy symptoms in between specially during the springtime. We did briefly talk about other alternatives such as Dupixent in case she continues to have breakthrough symptoms. She will talk to her logistics assistant about that. She continues use her respiratory therapy with good effect. Will continue with current medications. 09/16/2022 the patient is here for pulmonary follow-up visit per the patient continues to do well. She continues to use her respiratory therapy. She has not required her rescue inhaler more than twice a week. The patient has been on Xolair every 2 weeks which has been very affecting beneficial. Her IgE was significantly elevated the last time about 900. The patient should continue with the every 2 weeks injection. In the meantime the patient also should carry an EpiPen. Her sense so therefore I will send her want to the pharmacy. From a CPAP standpoint. She has been using the therapy and has been affecting beneficial. She does try to use more than 4 hours a night. Her AHI is below 1. Although I will adjust her pressure is slightly high with a maximum pressure of 14 from 12 the to allow even more effective use and benefit. The the the the if the patient does not tolerate the higher pressure she can just call and I can tweak the machine again. 07/30/2024 the patient is here for pulmonary follow-up visit. The patient overall is doing well. The patient has been off inhaled steroids which is reassuring therefore she is not taking any medications that can potentially worsen her bone density. However, the patient may have some degree of osteoporosis osteopenia based on the significant fractures. From an asthma standpoint she continues to do well on the Xolair. She does get the Xolair every 2 weeks and she has a rescue inhaler that she uses usually less than 2 times a week which is reassuring. In addition to that she continues we using her APAP. The APAP therapy continues to be affecting beneficial and she does try to use it every night sometimes she falls asleep without it. I continue to encourage her to use the APAP at least 4 hours that she can qualify for the 70% time use. The APAP therapy has been very affecting beneficial for her. She will continue it at this time. [facility] Medical History (Updated 07/29/23 @ 18:34 by Kaden Cedillo MD) Compression fracture of body of thoracic vertebra Asthma Murmur, cardiac MARIAELENA (obstructive sleep apnea) Chronic allergic rhinitis Asthma-COPD overlap syndrome Social History Patient Tobacco Use Status: Never used Tobacco Review of Systems Const Denies daytime sleepiness, Denies difficulty sleeping, Denies night sweats and Denies snoring ENT Denies change in voice, Denies lip swelling, Denies mouth pain, Reports nasal congestion, Reports nasal discharge and Denies tongue swelling Card Denies chest pain Resp Denies chest congestion, Reports cough, Denies snoring and Denies wheezing GI Denies abdominal pain Musc Reports myalgias and Reports arthralgias Neuro Denies Neuro-related abnormal movements Psych Denies no additional complaints Vin/Lymph Denies easy bleeding and Denies lymphadenopathy Aller/Immun Denies lip swelling, Denies tongue swelling and Denies wheezing Physical Exam Vital Signs: Last Vital Signs Pulse 72 07/30/24 14:14 BP 122/78 07/30/24 14:14 Pulse Ox 97 07/30/24 14:14 Oxygen Delivery Method Room Air 07/30/24 14:14 BMI result Body Mass Index 32.3 Const General: alert Neck Neck: Yes normal visual inspection, Yes full ROM and Yes no lymphadenopathy Chest Chest palpation & inspection: normal inspection of the chest Resp Effort & Inspection: normal respiratory effort Auscultation: clear to auscultation bilaterally and no wheezes Cardio Rate: regular rate Rhythm: regular rhythm Heart sounds: S1 normal heart sound present and S2 normal heart sound present GI Palpation (GI): Soft to palpation and nontender Auscultation: normal bowel sounds Skin General skin exam: rashes and/or lesions noted Assessment & Plan Assessment & Plan (1) Asthma: Code(s): J45.909 - Unspecified asthma, uncomplicated Category: Medical Qualifiers: Asthma complication type: uncomplicated Asthma persistence: persistent Asthma severity: moderate Qualified Code(s): J45.40 - Moderate persistent asthma, uncomplicated (2) Murmur, cardiac: Code(s): R01.1 - Cardiac murmur, unspecified Category: Medical (3) MARIAELENA (obstructive sleep apnea): Code(s): G47.33 - Obstructive sleep apnea (adult) (pediatric) Category: Medical (4) Chronic allergic rhinitis: Code(s): J30.9 - Allergic rhinitis, unspecified Category: Medical (5) Compression fracture of body of thoracic vertebra: Code(s): S22.000A - Wedge compression fracture of unspecified thoracic vertebra, initial encounter for closed fracture Category: Medical Plan [place] as needed Continue Xolair continue APAP, adjusted humidity follow-up in 12 months Medications: Refilled levalbuterol tartrate 45 mcg/actuation 2 puffs inhalation Q4-6H PRN 15 grams 11RF shortness of breath or wheezing Coding Level of Care Code Est Pt Level 4 (82791) Diagnoses Moderate persistent asthma without complication J45.40 Asthma complication type: uncomplicated Asthma persistence: persistent Asthma severity: moderate Murmur, cardiac R01.1 MARIAELENA (obstructive sleep apnea) G47.33 Chronic allergic rhinitis J30.9 Compression fracture of body of thoracic vertebra S22.000A Time Spent (min) 16
== END 2024-07-30 14:29 | disposition home or self-care (01) ==
LOC: HO.HPS 13:51
PROVIDERS: PCP Nurse Practitioner Adult Health; Visit Provider Hospitalist
DX: J45.40 Moderate persistent asthma, uncomplicated (principal); R01.1 Cardiac murmur, unspecified; G47.33 Obstructive sleep apnea (adult) (pediatric); J30.9 Allergic rhinitis, unspecified; S22.000A Wedge compression fracture of unspecified thoracic vertebra, initial encounter for closed fracture
CPT/HCPCS: 99214

== ENCOUNTER → 2024-07-30 13:51 | Outpatient (BNVA) | payer OTHER, SELFPAY | PROVIDERS: PCP Nurse Practitioner Adult Health; Visit Provider Hospitalist | DX: J45.40 Moderate persistent asthma, uncomplicated (principal); J30.9 Allergic rhinitis, unspecified; G47.33 Obstructive sleep apnea (adult) (pediatric); R01.1 Cardiac murmur, unspecified | CPT/HCPCS: 99212 ==

== ENCOUNTER 2025-08-18 12:59 | Outpatient (AMB) | payer MEDICARE, MEDICAID, SELFPAY ==
[2025-08-18 13:04] VITALS: BP 146/76; PULSE 80; O2SAT 97; BMI 30.2
--- NOTE | 2025-08-18 13:04 | MHC.OFFVIS ---
Vital Signs 08/18/25 13:04 Height 4 ft 10 in Weight 144 lb 6.444 oz BMI 30.2 BP 146/76 H Blood Pressure Location Lt brachial Position Sitting Pulse 80 Pulse Source Pulse Oximeter Pulse Oximetry (%) 97 Oxygen Delivery Method Room Air Intake Visit Reasons: Asthma [employer] Department Manager Required: No Accompanied by: Self / Same As Patient Allergies acetaminophen (From Percocet) Allergy (Severe, Verified 08/18/25 13:13) Rash and Hives benzocaine Allergy (Severe, Verified 08/18/25 13:13) Rash and Hives oxycodone (From Percocet) Allergy (Severe, Verified 08/18/25 13:13) Rash and Hives Penicillins Allergy (Severe, Verified 08/18/25 13:13) Rash and Hves HPI Comments Details: The patient is a 70-year-old woman with lifelong asthma here for a pulmonary evaluation. The patient was diagnosed with asthma when she was an . She has been followed closely by Allergy immunology. She has been on allergy shots for many years. In addition to that she has tried multiple inhalers. However, the beta agonist inhalers resulting significant tremulousness and palpitations and she cannot tolerate them. Therefore she has a Xopenex short-acting bronchodilator she also uses inhaled cortical steroid. She continues to have wheezing on a regular basis. She developed chest tightness which is mild and to moderate severity. It does limit her activity. She was offered different inhaler but again she was concerned with the long-acting beta agonist resulting worsening tremors and cardiac side effects. In in addition to the allergy shots she had been prescribed Xolair. However, financially was very expensive for she was not able to continue the therapy. In addition to that the patient has underlying obstructive sleep apnea. She was diagnosed many years ago. Initially she was using CPAP with was very difficult for her to get used to it. Ultimately the machine was lost she no longer used it. He has been many years since that. She does have a fragmented sleep and she does wake up tired with some daytime drowsiness. Her [place] score is indeed elevated in over 24. The patient should consider repeating the sleep study at some point. In regards of imaging studies she had an x-ray at [facility] back in 2011 which him per report stated was no acute disease. The cannot look at it myself because the timeframe. 03/21/2022 the patient is here for a pulmonary follow-up visit. Overall the patient has been doing well. She did finally get her CPAP. The CPAP therapy has been affecting beneficial. She has been having issues with the heat and humidity. Therefore we did change it to manual and decreased temperature. She may do better with climate tubing. I will request an from the [employer]. Right now the CPAP therapy appears to be affecting beneficial. I am hopeful with the changes the humidity she will tolerated out better. Her respiratory status is also stable. She continues on Xolair. Although, she continues to have allergy symptoms in between specially during the springtime. We did briefly talk about other alternatives such as Dupixent in case she continues to have breakthrough symptoms. She will talk to her chief writer about that. She continues use her respiratory therapy with good effect. Will continue with current medications. 09/16/2022 the patient is here for pulmonary follow-up visit per the patient continues to do well. She continues to use her respiratory therapy. She has not required her rescue inhaler more than twice a week. The patient has been on Xolair every 2 weeks which has been very affecting beneficial. Her IgE was significantly elevated the last time about 900. The patient should continue with the every 2 weeks injection. In the meantime the patient also should carry an EpiPen. Her sense so therefore I will send her want to the pharmacy. From a CPAP standpoint. She has been using the therapy and has been affecting beneficial. She does try to use more than 4 hours a night. Her AHI is below 1. Although I will adjust her pressure is slightly high with a maximum pressure of 14 from 12 the to allow even more effective use and benefit. The the the the if the patient does not tolerate the higher pressure she can just call and I can tweak the machine again. 07/30/2024 the patient is here for pulmonary follow-up visit. The patient overall is doing well. The patient has been off inhaled steroids which is reassuring therefore she is not taking any medications that can potentially worsen her bone density. However, the patient may have some degree of osteoporosis osteopenia based on the significant fractures. From an asthma standpoint she continues to do well on the Xolair. She does get the Xolair every 2 weeks and she has a rescue inhaler that she uses usually less than 2 times a week which is reassuring. In addition to that she continues we using her APAP. The APAP therapy continues to be affecting beneficial and she does try to use it every night sometimes she falls asleep without it. I continue to encourage her to use the APAP at least 4 hours that she can qualify for the 70% time use. The APAP therapy has been very affecting beneficial for her. She will continue it at this time. 08/18/2025 the patient is here for pulmonary follow-up visit. The patient overall has been doing okay. 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 This has been very hard for them. In the meantime she did have issues with her insurance and she could no longer continue the Xolair injections. She has actually been doing okay although she does use her rescue inhaler a couple times a week. At this point she needs to be on a maintenance inhaler will hold off on the Xolair. She can start Advair HFA to minimize palpitations and tremors. The patient does not do well with powdered inhalers. In the meantime she is going to continue with the inhalers Xopenex as needed. She will return in 4-6 months and we will address the question of biologics. In the meantime she has also had weight loss. She has decreased p.o. intake due to appetite issues. She has had reasonable weight loss and feels okay. The patient has been sleeping without her CPAP and seems to be doing okay she is waking up rested. At this point will hold off on CPAP at this time. Will assess during the next visit to see if she needs another sleep study. [facility] Medical History (Updated 07/29/23 @ 18:34 by Kaden Cedillo MD) Compression fracture of body of thoracic vertebra Asthma Murmur, cardiac MARIAELENA (obstructive sleep apnea) Chronic allergic rhinitis Asthma-COPD overlap syndrome Social History Patient Tobacco Use Status: Never used Tobacco Review of Systems Const Denies daytime sleepiness, Denies difficulty sleeping, Denies night sweats and Denies snoring ENT Denies change in voice, Denies lip swelling, Denies mouth pain, Reports nasal congestion, Reports nasal discharge and Denies tongue swelling Card Denies chest pain Resp Denies chest congestion, Reports cough, Denies snoring and Denies wheezing GI Denies abdominal pain Musc Reports myalgias and Reports arthralgias Neuro Denies Neuro-related abnormal movements Psych Denies no additional complaints Vin/Lymph Denies easy bleeding and Denies lymphadenopathy Aller/Immun Denies lip swelling, Denies tongue swelling and Denies wheezing Physical Exam Vital Signs: Last Vital Signs Pulse 80 08/18/25 13:04 BP 146/76 H 08/18/25 13:04 Pulse Ox 97 08/18/25 13:04 Oxygen Delivery Method Room Air 08/18/25 13:04 BMI result Body Mass Index 30.2 Const General: alert Neck Neck: Yes normal visual inspection, Yes full ROM and Yes no lymphadenopathy Chest Chest palpation & inspection: normal inspection of the chest Resp Effort & Inspection: normal respiratory effort Auscultation: no wheezes and diminished lung sounds Cardio Rate: regular rate Rhythm: regular rhythm Heart sounds: S1 normal heart sound present and S2 normal heart sound present GI Palpation (GI): Soft to palpation and nontender Auscultation: normal bowel sounds Skin General skin exam: rashes and/or lesions noted Assessment & Plan Assessment & Plan (1) Asthma: Code(s): J45.909 - Unspecified asthma, uncomplicated Category: Medical Qualifiers: Asthma complication type: uncomplicated Asthma persistence: persistent Asthma severity: moderate Qualified Code(s): J45.40 - Moderate persistent asthma, uncomplicated (2) Murmur, cardiac: Code(s): R01.1 - Cardiac murmur, unspecified Category: Medical (3) MARIAELENA (obstructive sleep apnea): Code(s): G47.33 - Obstructive sleep apnea (adult) (pediatric) Category: Medical (4) Chronic allergic rhinitis: Code(s): J30.9 - Allergic rhinitis, unspecified Category: Medical (5) Compression fracture of body of thoracic vertebra: Code(s): S22.000A - Wedge compression fracture of unspecified thoracic vertebra, initial encounter for closed fracture Category: Medical Plan [place] as needed start Advair HFA start Singulair start Zyrtec Stopped Xolair due to insurance stopped APAP, positional therapy follow-up in 6-8 months Medications: New fluticasone propion-salmeterol 115-21 mcg/actuation (Advair HFA) 2 puffs inhalation Q12H 12 grams 11RF 30 days montelukast (Singulair) 10 mg PO BEDTIME 30 tabs 11RF 30 days J45.909 - Unspecified asthma, uncomplicated cetirizine (Zyrtec) 10 mg PO DAILY 30 tabs 10RF Refilled levalbuterol tartrate 45 mcg/actuation 2 puffs inhalation Q4-6H PRN 15 grams 11RF shortness of breath or wheezing Coding Level of Care Code Est Pt Level 4 (49883) Diagnoses Moderate persistent asthma without complication J45.40 Asthma complication type: uncomplicated Asthma persistence: persistent Asthma severity: moderate Murmur, cardiac R01.1 MARIAELENA (obstructive sleep apnea) G47.33 Chronic allergic rhinitis J30.9 Compression fracture of body of thoracic vertebra S22.000A Time Spent (min) 16
== END 2025-08-18 13:35 | disposition home or self-care (01) ==
LOC: HO.HPS 13:00
PROVIDERS: PCP Nurse Practitioner Adult Health; Visit Provider Hospitalist
DX: J45.40 Moderate persistent asthma, uncomplicated (principal); R01.1 Cardiac murmur, unspecified; G47.33 Obstructive sleep apnea (adult) (pediatric); J30.9 Allergic rhinitis, unspecified; S22.000A Wedge compression fracture of unspecified thoracic vertebra, initial encounter for closed fracture
CPT/HCPCS: 99214

== ENCOUNTER → 2025-08-18 12:59 | Outpatient (BNVA) | payer MEDICARE, MEDICAID, SELFPAY | PROVIDERS: PCP Nurse Practitioner Adult Health; Visit Provider Hospitalist | DX: J45.40 Moderate persistent asthma, uncomplicated (principal); Z79.51 Long term (current) use of inhaled steroids; J30.9 Allergic rhinitis, unspecified; G47.33 Obstructive sleep apnea (adult) (pediatric); R01.1 Cardiac murmur, unspecified | CPT/HCPCS: 99212 ==